=== PATIENT | female | born 1980 | race Asian ===

== ENCOUNTER 2018-10-16 13:24 | Outpatient (CLI) | payer OTHER ==
[2018-10-16 14:57] LABS: #Basophils 0.1 thou/uL (0.0-0.2); #Eosinphils 0.2 thou/uL (0.0-0.7); #Lymphocytes 2.9 thou/uL (1.20-3.40); #Monocytes 0.6 thou/uL (0.11-0.59); #Neutrophils 5.7 thou/uL (1.40-6.50); %Basophils 0.6 % (0.0-1.0); %Eosinophils 2.5 % (0.0-10.0); %Lymphocytes 30.7 % (21.0-51.0); %Monocytes 6.3 % (0.0-10.0); %Neutrophils 59.9 % (42.0-75.0); Hemoglobin 13.3 g/dL (12.0-16.0); Mean Corpuscular HGB CONC 32.3 g/dL (32.0-36.0); Mean Corpuscular Hemoglobin 27.2 pg (27.0-31.0); Mean Corpuscular Volume 84.1 fL (78.0-98.0); Mean Platelet Volume 7.2 fL (7.4-10.4); Platelet Count 457 thou/uL (130-400); RBC Distribution Width 12.8 % (11.5-14.5); White Blood Cell (WBC) Count 9.6 thou/uL (4.8-10.8)
[2018-10-16 15:03] LABS: BHCG - Serum Negative (NEGATIVE); Pregs Control Background? CLEAR/WHITE (CLR/WHITE); Pregs Control Bar Appear? YES (CONTROL BAR)
[2018-10-16 15:15] LABS: ALT (SGPT) 11 U/L (8-55); AST (SGOT) 16 U/L (5-34); Albumin 4.1 g/dL (3.5-5.0); Alkaline Phosphatase 88 U/L (40-150); Anion Gap 14 mmol/L (10-20); BUN (Urea Nitrogen) 8 mg/dL (7.0-18.7); Bilirubin, Total 0.5 mg/dL (0.2-1.2); Calc. Creatinine Clearance 0 mL/min (70-130); Calcium 9.6 mg/dL (7.8-10.44); Carbon Dioxide 24 mmol/L (22-29); Chloride 105 mmol/L (98-107); Estimated GFR-MDRD Greater than 90; Globulin 3.5 g/dL (2.4-3.5); Glucose 123 mg/dL (70-105); Potassium 4.5 mmol/L (3.5-5.1); Protein, Total 7.6 g/dL (6.0-8.3); Sodium 138 mmol/L (136-145)
--- NOTE | 2018-10-16 23:24 | EKG ---
Test Reason : Blood Pressure : / mmHG Vent. Rate : 058 BPM Atrial Rate : 058 BPM P-R Int : 144 ms QRS Dur : 074 ms QT Int : 438 ms P-R-T Axes : 069 060 036 degrees QTc Int : 429 ms Sinus bradycardia Low voltage QRS Borderline ECG No previous ECGs available Confirmed by SO DAVIS ([id number]) on 10/16/2018 11:23:32 PM Referred By: REGINO Confirmed By:SO DAVIS
== END 2018-10-16 13:25 | disposition home or self-care (01) ==
LOC: LABBT 13:24
PROVIDERS: ATTEND Specialist
DX: Z01.818 Encounter for other preprocedural examination (principal); K80.20 Calculus of gallbladder without cholecystitis without obstruction
CPT/HCPCS: 80053; 84703; 85025; 93005; 93010

== ENCOUNTER 2018-10-19 09:53 | Emergency (ER) | payer OTHER ==
[2018-10-19 10:10] LABS: #Basophils 0.1 thou/uL (0.0-0.2); #Eosinphils 0.2 thou/uL (0.0-0.7); #Lymphocytes 2.4 thou/uL (1.20-3.40); #Monocytes 0.3 thou/uL (0.11-0.59); #Neutrophils 3.9 thou/uL (1.40-6.50); %Basophils 0.8 % (0.0-1.0); %Eosinophils 2.3 % (0.0-10.0); %Lymphocytes 35.3 % (21.0-51.0); %Monocytes 4.9 % (0.0-10.0); %Neutrophils 56.6 % (42.0-75.0); Hemoglobin 14.2 g/dL (12.0-16.0); Mean Corpuscular Hemoglobin 26.9 pg (27.0-31.0); Mean Corpuscular Volume 84.1 fL (78.0-98.0); Mean Platelet Volume 6.8 fL (7.4-10.4); Platelet Count 471 thou/uL (130-400); RBC Distribution Width 12.6 % (11.5-14.5); Red Blood Cell (RBC) Count 5.26 mill/uL (4.20-5.40); White Blood Cell (WBC) Count 6.9 thou/uL (4.8-10.8)
[2018-10-19 10:23] LABS: BHCG - Serum Negative (NEGATIVE); Pregs Control Background? CLEAR/WHITE (CLR/WHITE); Pregs Control Bar Appear? YES (CONTROL BAR)
[2018-10-19 10:35] LABS: ALT (SGPT) 14 U/L (8-55); AST (SGOT) 18 U/L (5-34); Albumin 4.5 g/dL (3.5-5.0); Alkaline Phosphatase 94 U/L (40-150); Anion Gap 12 mmol/L (10-20); BUN (Urea Nitrogen) 11 mg/dL (7.0-18.7); Bilirubin, Total 0.6 mg/dL (0.2-1.2); Calc. Creatinine Clearance 0 mL/min (70-130); Calcium 9.6 mg/dL (7.8-10.44); Carbon Dioxide 25 mmol/L (22-29); Chloride 102 mmol/L (98-107); Estimated GFR-MDRD 77; Globulin 4.3 g/dL (2.4-3.5); Glucose 258 mg/dL (70-105); Potassium 4.4 mmol/L (3.5-5.1); Protein, Total 8.8 g/dL (6.0-8.3); Sodium 135 mmol/L (136-145)
--- NOTE | 2018-10-19 10:40 | ULT ---
Right upper quadrant ultrasound: 10/19/2018 COMPARISON: None HISTORY: Right upper quadrant pain TECHNIQUE: Multiplanar grayscale sonographic imaging of the right upper quadrant obtained. FINDINGS: The imaged pancreas is grossly unremarkable. Distal body and tail are obscured by bowel gas . No focal liver lesion or intrahepatic biliary dilatation noted. There is no gallbladder wall thickening or pericholecystic fluid. No gallstones are noted. The common bile duct measures 2 mm, within normal limits. The right kidney measures 10.8 cm in craniocaudal dimension, and demonstrates no evidence for stone, hydronephrosis, or mass lesion. IMPRESSION: Unremarkable right upper quadrant ultrasound.
[2018-10-19] MEDS ORDERED: Acetaminophen 500 MG TAB ONE (11:00)
--- NOTE | 2018-10-19 11:21 | CT ---
CT head noncontrast HISTORY: Lightheaded. Syncope. FINDINGS: There is no evidence of acute intracranial hemorrhage or infarct. The ventricles appear nor mal in size, shape and position. There is no mass effect or shift of midline structures. Visualized paranasal sinuses remain well aerated. IMPRESSION: No acute intracranial abnormalities are demonstrated.
[2018-10-19 11:22] LABS: Bilirubin Negative (Negative); Blood, Urine Negative (Negative); Clarity CLEAR (Clear); Glucose, Urine (Dipstick) 500 mg/dL (Negative); Leukocyte Negative (Negative); Nitrite Negative (Negative); Protein, Urine (Dipstick) Negative (Neg-Trace); Specific Gravity, Urine 1.012 (1.002-1.036); Urobilinogen 0.2 mg/dL (0.2-1.0); pH, Urine 7.5 (5.0-9.0)
== END 2018-10-19 11:30 | disposition home or self-care (01) ==
LOC: ERS 09:53
DX: R55 Syncope and collapse (principal); E11.9 Type 2 diabetes mellitus without complications
CPT/HCPCS: 70450; 76705; 80053; 81003; 84703; 85025; 93005

== ENCOUNTER 2018-10-22 09:04 | Day surgery (SDC) | payer OTHER ==
[2018-10-16 13:28] VITALS: BMI 25.2
--- NOTE | 2018-10-17 12:54 | HP ---
HISTORY OF PRESENT ILLNESS: Ahsan Lee is a 38-year-old female with symptomatic cholelithiasis. She is referred by Dr. Pimentel. PAST SURGICAL HISTORY: Noncontributory. REVIEW OF SYSTEMS: Noncontributory. PAST MEDICAL HISTORY: Diabetes mellitus, headaches, and thyroid disorder. MEDICATIONS: Insulin. ALLERGIES: NONE. SOCIAL HISTORY: Tobacco, none. Alcohol, none. The patient is a full-time housewife. PHYSICAL EXAMINATION: VITAL SIGNS: 125 pounds, 4 feet 11 inches, 25 BMI. Blood pressure 112/63, heart rate 64, temperature 98 degrees. HEAD, EYES, EARS, NOSE, AND THROAT: Unremarkable. Sclerae nonicteric. SKIN: Nonjaundiced. LUNGS: Clear to auscultation. CARDIAC: Regular rate and rhythm without murmur or gallop. ABDOMEN: Soft, nontender. EXTREMITIES: Unremarkable. ASSESSMENT: Symptomatic gallstones. PLAN: Laparoscopic video cholecystectomy. She understands the risks and benefits of procedure and consents. Job ID: [id number]
[2018-10-22] MEDS ORDERED: Levofloxacin 500 mg/D5W 100 ml Premix Bag ONE (09:44)
[2018-10-22] MEDS ORDERED: Ketorolac Tromethamine 30 MG/ML VIAL ONE (09:44)
[2018-10-22] MEDS ORDERED: Bupivacaine HCl 0.5%/Epinephrine 1:200,000/PF 30 ml Vial ONE (10:58)
[2018-10-22] MEDS ORDERED: Fentanyl 100 MCG/2 ML VIAL ONE ×2 (11:04→12:16)
[2018-10-22] MEDS ORDERED: Lidocaine 2% Jelly 5 ML TUBE ONE (11:05)
[2018-10-22] MEDS ORDERED: SUGAMMADEX SODIUM 200 MG/2 ML VIAL ONE (11:50)
--- NOTE | 2018-10-22 13:36 | OP ---
DATE OF PROCEDURE: 10/22/2018 PREOPERATIVE DIAGNOSES: Chronic cholecystitis and cholelithiasis. POSTOPERATIVE DIAGNOSES: Chronic cholecystitis and cholelithiasis. PROCEDURE PERFORMED: Laparoscopic video cholecystectomy. ANESTHESIA: General, local 0.5% Marcaine with epinephrine 30 mL. DESCRIPTION OF PROCEDURE: The patient was taken to the operating room, underwent general anesthesia, abdomen was prepared with ChloraPrep and draped in routine fashion, 0.5% Marcaine with epinephrine 30 mL total volume used to infiltrate skin and subcutaneous tissue about each port site. The infraumbilical incision was made. Pneumoperitoneum to 15 mmHg was obtained with a Veress needle, replaced with a 5 port, video laparoscope was inserted. Right subxiphoid incision was made and 11 port placed. Right subcostal incision was made. Midclavicular entrance line, where the 5 port was placed. Fundus of the gallbladder was grasped at the cephalad. Liver appeared to be normal. Infundibulum grasped and reflected laterally. Cystic artery and duct dissected free. Critical view obtained. Cystic artery and duct double clipped proximally and divided. Gallbladder dissected free from liver bed obtaining good hemostasis prior to division of the final peritoneal attachments. Gallbladder and contents removed, submitted to Pathology. Irrigant and pneumoperitoneum evacuated. All instruments were removed. All skin incisions were approximated with interrupted subdermal 4-0 Monocryl and Mildred glue applied. Job ID: [id number]
[2018-10-22] MEDS ORDERED: Promethazine HCl 25 MG/ML VIAL ONE (14:05)
[2018-10-22] MEDS ORDERED: PROPOFOL 200 MG/20 ML VIAL ONE (16:43)
[2018-10-22] MEDS ORDERED: Rocuronium Bromide 10 MG/ML (10ML VIAL) ONE (16:43)
[2018-10-22] MEDS ORDERED: Lidocaine 1% PF 5 ML VIAL ONE (16:43)
[2018-10-22] MEDS ORDERED: PHENYLEPHRINE-NS 100 MCG/ML 10 ML SYRINGE ONE (16:43)
[2018-10-22] MEDS ORDERED: Ondansetron PF 4 MG/2 ML Vial ONE (16:43)
[2018-10-22] MEDS ORDERED: Glycopyrrolate 0.2 MG/ML 5 ML SYRINGE ONE (16:43)
[2018-10-22] MEDS ORDERED: traMADol HCl 50 MG TAB ONE (16:55)
== END 2018-10-22 17:45 | disposition home or self-care (01) ==
LOC: SDC 09:04
PROVIDERS: ATTEND Specialist
PROC: 0FT44ZZ Resection of Gallbladder, Percutaneous Endoscopic Approach (ICD-10-PCS; principal; 2018-10-22)
DX: K80.10 Calculus of gallbladder with chronic cholecystitis without obstruction (principal); E11.9 Type 2 diabetes mellitus without complications; E07.9 Disorder of thyroid, unspecified; Z79.4 Long term (current) use of insulin
CPT/HCPCS: 36416; 88304; J0131; J0670; J1885; J1956; J2001; J2405; J2550; J2704; J3010

== ENCOUNTER 2018-11-15 08:46 | Outpatient (CLI) | payer OTHER ==
--- NOTE | 2018-11-15 10:41 | CT ---
CT OF THE ABDOMEN AND PELVIS WITH IV CONTRAST INDICATION: 38-year-old female with severe abdominal pain with nausea and vomiting following a cholec ystectomy performed on September 2018 COMPARISON: None FINDINGS: ABDOMEN: Lung bases: There is a 9.5 mm subpleural pulmonary nodule involving the left lower lobe Liver: No focal lesion. Gallbladder: Surgically absent. Small amount of inflammatory stranding remains within the gallbladde r fossa. No large drainable fluid collection is evident. Pancreas: Normal. Adrenal glands: Normal. Spleen: Normal. Kidneys: Normal. Retroperitoneum of the upper abdomen: No lymphadenopathy or free fluid is identified. Pelvis: Small and large bowel: Normal Bladder: Normal. Rectal and perirectal soft tissues:Normal. Reproductive structures: Normal. Free fluid in pelvis: No free fluid is evident. Lymphadenopathy pelvis: No lymphadenopathy is evident. Osseous structures: No acute osseous abnormality. No destructive osteolytic or osteoblastic lesion i s identified. There is a small fat-containing periumbilical hernia. IMPRESSION: 1. Postsurgical change of cholecystectomy with mild residual stranding still seen within the gallblad luis m fossa which is likely postprocedural in nature. No large drainable fluid collection is evident. 2. Left lower lobe pulmonary nodule. The nodule measures 9.5 mm. As a conservative measure a follow-u p CT in 6-12 months may be helpful to document stability or resolution.
== END 2018-11-15 08:47 | disposition home or self-care (01) ==
LOC: BICCT 08:46
PROVIDERS: ATTEND Specialist
DX: Z48.815 Encounter for surgical aftercare following surgery on the digestive system (principal); Z90.49 Acquired absence of other specified parts of digestive tract; R91.1 Solitary pulmonary nodule
CPT/HCPCS: 74177